=== PATIENT | female | born 1990 | race African-American/Black ===

== ENCOUNTER 2024-06-16 11:07 | Inpatient (IN) | payer OTHER ==
[2024-06-16 11:41] VITALS: BMI 35.3
[2024-06-16] MEDS ORDERED: IBUPROFEN 600 MG TABLET (FP) PO PRN (14:37)
[2024-06-16] MEDS ORDERED: IBUPROFEN 400 MG TABLET (FP) PO PRN (14:37)
[2024-06-16] MEDS ORDERED: hydrOXYzine PAMOATE 25 MG CAPSULE (FP) PO PRN (14:37)
[2024-06-16] MEDS ORDERED: MAG HYDROX/AL HYDROX/SIMETH 30 ML UNIT-DOSE CUP PO PRN (14:37)
[2024-06-16] MEDS ORDERED: MAGNESIUM HYDROX 2400MG/30ML ORAL SUSPENSION 30 ML CUP PO PRN (14:37)
[2024-06-16] MEDS ORDERED: BENZONATATE 200 MG CAPSULE PO PRN (14:37)
[2024-06-16] MEDS ORDERED: LOPERAMIDE HCL 2 MG CAPSULE PO PRN (14:37)
[2024-06-16] MEDS ORDERED: guaiFENesin 600 MG TABLET.ER (FP) PO PRN (14:37)
[2024-06-16] MEDS ORDERED: ACETAMINOPHEN 325 MG TABLET (FP) PO PRN (14:37)
[2024-06-16] MEDS ORDERED: POLYETHYLENE GLYCOL (HEALTHYLAX) 3350 17 GM PACKET PO PRN (14:37)
[2024-06-16] MEDS ORDERED: NALOXONE (NARCAN) HCL 4 MG/0.1 ML SPRAY NS PRN (14:37)
[2024-06-16] MEDS ORDERED: BENZOCAINE/MENTHOL (CHLORASEPTIC ) LOZENGE MM PRN (14:37)
[2024-06-16] MEDS ORDERED: TUBERCULIN PPD 5 TU/0.1ML VIAL ID ONE (17:52)
[2024-06-16] MEDS: TUBERCULIN PPD 5 TU/0.1ML SYRINGE (IN PATIENT USE ONLY) ID ONE (18:33)
[2024-06-16] MEDS: THIAMINE 100 MG TABLET PO SCH (21:31)
[2024-06-16] MEDS: MELATONIN 5 MG TABLETS PO SCH (21:31)
[2024-06-17] MEDS: NICOTINE POLACRILEX 2 MG GUM BUC PRN (08:47)
[2024-06-17 10:00] LABS: HEMATOCRIT 38.7 % (34.1-44.9); HEMOGLOBIN 12.1 g/dL (11.2-15.7); MCHC 31.3 g/dl (32.2-35.5); MEAN PLT VOLUME 10.4 fl (9.4-12.3); PLATELET COUNT 313 x10^3/uL (182-369); RDW 13.4 % (12.1-16.8)
[2024-06-17 10:11] LABS: CHLORIDE 107 mmol/L (98-107); POTASSIUM 4.2 mmol/L (3.5-5.1); SODIUM 139 mmol/L (136-145)
[2024-06-17] MEDS: risperiDONE 1 MG TABLET PO SCH (10:11)
[2024-06-17] MEDS: GABAPENTIN 100 MG CAPSULE PO SCH (10:11)
[2024-06-17] MEDS: PRENATAL VITAMINS W/ FOLIC ACID TABLET (FP) PO SCH (10:11)
[2024-06-17 10:23] LABS: ALBUMIN 3.4 g/dl (3.4-5.0); ANION GAP 5 mmol/L (4-13); BLOOD UREA NITROGEN 7.7 mg/dL (7-18); CALCIUM 9.3 mg/dL (8.5-10.1); CO2 28 mmol/L (21-32)
[2024-06-17 10:24] LABS: GLUCOSE,RANDOM 83 mg/dL (74-106)
[2024-06-17 10:26] LABS: SGOT/AST 22 U/L (15-37); SGPT/ALT 17 U/L (13-61)
[2024-06-17 10:27] LABS: CREATININE 0.5 mg/dL (0.55-1.3)
[2024-06-17 10:28] LABS: ALK PHOS 65 U/L (45-117); BILIRUBIN,TOTAL 0.5 mg/dL (0.2-1); TOT PROT 6.4 g/dl (6.4-8.2)
[2024-06-17 12:09] LABS: SYPHILIS W/ RPR CONF NON-REACTIVE (NONREACTIVE)
[2024-06-17 12:38] LABS: HCV DIAGNOSTIC IN-HOUSE W/RFLX NON-REACTIVE (NONREACTIVE)
[2024-06-18 09:49] LABS: URINE APPEARANCE CLEAR; URINE BILIRUBIN NEGATIVE (NEGATIVE); URINE COLOR YELLOW; URINE GLUCOSE (UA) NEGATIVE (NEGATIVE); URINE KETONE NEGATIVE (NEGATIVE); URINE LEUK ESTERASE NEGATIVE (NEGATIVE); URINE NITRITE NEGATIVE (NEGATIVE); URINE PROTEIN NEGATIVE (NEGATIVE); URINE UROBILINOGEN 0.2 mg/dL (0.2-1.0)
[2024-06-21] MEDS: risperiDONE 2 MG TABLET PO SCH (21:11)
[2024-06-22] MEDS: risperiDONE 1 MG TABLET PO SCH (10:16)
[2024-06-27] MEDS: NICOTINE POLACRILEX 2 MG LOZENGE BC PRN (10:37)
[2024-07-04] MEDS: GABAPENTIN 100 MG CAPSULE PO SCH (16:34)
[2024-07-04] MEDS: NALTREXONE HCL 50 MG TABLET PO ONE (17:36)
[2024-07-04] MEDS: GABAPENTIN 300 MG CAPSULE PO SCH (21:15)
[2024-07-05] MEDS: NALTREXONE HCL 50 MG TABLET PO SCH (10:15)
[2024-07-13 07:18] VITALS: BP 126/76; PULSE 85; RESP 16; TEMP 97.1
== END 2024-07-13 10:17 | disposition home or self-care (01) | DRG 772 ==
LOC: YASAS 11:07 → Y5N 16:08
PROVIDERS: ADMIT Allergy & Immunology; ATTEND Psychiatry & Neurology Pain Medicine
PROC: HZ42ZZZ Group Counseling for Substance Abuse Treatment, Cognitive-Behavioral (ICD-10-PCS; principal; 2024-06-16)
DX: F10.20 Alcohol dependence, uncomplicated (principal); F17.210 Nicotine dependence, cigarettes, uncomplicated; F25.9 Schizoaffective disorder, unspecified; F19.282 Other psychoactive substance dependence with psychoactive substance-induced sleep disorder; H66.92 Otitis media, unspecified, left ear
CPT/HCPCS: 36415; 80053; 80305; 80307; 81003; 81025; 85027; 86780; 86803; 87811; 93005; 93010